=== PATIENT | male | born 1950 | race Caucasian/White ===

== ENCOUNTER → 2016-02-25 | Outpatient (CLI) | payer OTHER, BC | LOC: MMPC 09:00 | PROVIDERS: ATTEND Nurse Practitioner Family | DX: E11.9 Type 2 diabetes mellitus without complications (principal); M25.572 Pain in left ankle and joints of left foot | CPT/HCPCS: 99214; G0463 ==

== ENCOUNTER → 2016-03-18 | Outpatient (CLI) | payer OTHER, BC ==
[2016-03-18 08:20] LABS: HEMOGLOBIN A1C 6.67 % (4.2-6.0); MEAN BLOOD GLUCOSE (CALC) 136.111 mg/dL
[2016-03-18 08:22] LABS: CREATININE, URINE 153.8 MG/DL (15-500)
[2016-03-18 08:29] LABS: ASPARTATE AMINO TRANSFERASE 44 IU/L (21-57); BILIRUBIN,TOTAL 0.8 mg/dL (0.3-1.2); BLOOD UREA NITROGEN 17 mg/dL (7-22); CALCIUM 9.9 mg/dL (8.7-10.7); CHLORIDE 105 meq/L (98-112); EST GLOMERULAR FILTRATION > 60 (>60 ml/min/1.73m(2)); GLUCOSE 130 mg/dL (78-110); HDL CHOLESTEROL 37 mg/dL (40-150); POTASSIUM 4.4 meq/L (3.8-5.2); SODIUM 143 meq/L (135-145); TOTAL PROTEIN 7.6 g/dL (6.1-8.0); TRIGLYCERIDES 251 mg/dL (44-200)
== END ==
LOC: LAB 08:02
PROVIDERS: ATTEND Nurse Practitioner Family
DX: E11.9 Type 2 diabetes mellitus without complications (principal); E78.5 Hyperlipidemia, unspecified; I10 Essential (primary) hypertension
CPT/HCPCS: 36415; 80053; 80061; 82043; 83036; 99214

== ENCOUNTER → 2016-06-17 | Outpatient (CLI) | payer OTHER, BC ==
[2016-06-17 07:06] LABS: HEMOGLOBIN A1C 6.11 % (4.2-6.0)
[2016-06-17 07:07] LABS: CREATININE, URINE 164.8 MG/DL (15-500)
[2016-06-17 07:50] LABS: CHOL/HDL RATIO 6.04 RATIO (0-4.0); LDL CHOLESTEROL,CALCULATED 164.2 mg/dL
[2016-06-17 07:50] LABS: BLOOD UREA NITROGEN 16 mg/dL (7-22); EST GLOMERULAR FILTRATION > 60 (>60 ml/min/1.73m(2)); SERUM ALBUMIN 4.6 g/dL (3.5-4.8)
== END ==
LOC: LAB 06:45
PROVIDERS: ATTEND Nurse Practitioner Family
DX: E11.9 Type 2 diabetes mellitus without complications (principal); I10 Essential (primary) hypertension; E78.5 Hyperlipidemia, unspecified; R80.9 Proteinuria, unspecified; R94.5 Abnormal results of liver function studies
CPT/HCPCS: 36415; 80053; 80061; 82043; 83036

== ENCOUNTER → 2016-09-14 | Outpatient (CLI) | payer OTHER, BC ==
[2016-09-14 06:36] LABS: CHOL/HDL RATIO 4.25 RATIO (0-4.0)
[2016-09-14 06:36] LABS: BLOOD UREA NITROGEN 15 mg/dL (7-22); BUN/CREATININE RATIO 16.66 (6-20); CALCIUM 9.5 mg/dL (8.7-10.7); EST GLOMERULAR FILTRATION > 60 (>60 ml/min/1.73m(2)); SERUM ALBUMIN 4.1 g/dL (3.5-4.8)
[2016-09-14 06:37] LABS: HEMOGLOBIN A1C 6.08 % (4.2-6.0)
[2016-09-14 06:38] LABS: CREATININE, URINE 133.4 MG/DL (15-500)
== END ==
LOC: LAB 05:41
PROVIDERS: ATTEND Nurse Practitioner Family
DX: E11.9 Type 2 diabetes mellitus without complications (principal); E78.5 Hyperlipidemia, unspecified; R80.9 Proteinuria, unspecified; I10 Essential (primary) hypertension; R94.5 Abnormal results of liver function studies; M16.12 Unilateral primary osteoarthritis, left hip
CPT/HCPCS: 36415; 80053; 80061; 82043; 83036